=== PATIENT | female | born 1980 | race African-American/Black ===

== ENCOUNTER 2022-11-21 21:26 | Emergency (ER) | payer SELFPAY ==
[~2022-11-21] VITALS: Ht 157.5 cm; Wt 57.5 kg
[2022-11-21 21:31] VITALS: BP 138/89
[2022-11-21 21:49] LABS: BILIRUBIN,URINE NEGATIVE (NEGATIVE); COLOR,URINE YELLOW; GLUCOSE, URINE (UA) NEGATIVE (NEGATIVE); KETONES,URINE NEGATIVE (NEGATIVE); LEUKOCYTE ESTERASE ,URINE NEGATIVE (NEGATIVE); NITRITE,URINE NEGATIVE (NEGATIVE); PROTEIN,URINE NEGATIVE (NEGATIVE)
[2022-11-21 21:50] LABS: CLARITY,URINE CLOUDY; HCG,QUALITATIVE URINE NEGATIVE (NEGATIVE)
[2022-11-21 21:55] LABS: BACTERIA,URINE MODERATE /HPF; SQUAMOUS EPITHELIAL CELL,UR >50 /HPF
[2022-11-21 21:59] LABS: AMPHETAMINE SCREEN, URINE NEGATIVE (NEGATIVE); BARBITURATE SCREEN URINE NEGATIVE (NEGATIVE); BENZODIAZEPINES SCREEN URINE NEGATIVE (NEGATIVE); CANNABINOID SCREEN, URINE NEGATIVE (NEGATIVE); COCAINE SCREEN URINE NEGATIVE (NEGATIVE); METHADONE STAT NEGATIVE (NEGATIVE); OPIATE SCREEN URINE NEGATIVE (NEGATIVE); OXYCODONE STAT NEGATIVE (NEGATIVE); PROPOXYPHENE STAT NEGATIVE (NEGATIVE); TRICYCLIC ANTIDEPRESSANTS SCRE NEGATIVE (NEGATIVE)
[2022-11-21] MEDS ORDERED: KETOROLAC INJ 30 MG/ML VIAL IM ONE (22:15)
[2022-11-21] MEDS ORDERED: cefTRIAXone 250 MG VIAL IV/IM IM ONE (23:00)
[2022-11-21] MEDS ORDERED: LIDOCAINE 1% INJ 20 ML VIAL INJ ONE (23:00)
[2022-11-21] MEDS ORDERED: AZITHROMYCIN 250 MG TABLET PO ONE (23:00)
--- NOTE | 2022-11-21 23:02 | ED GU-Female ---
General Chief Complaint: - Reproductive Stated Complaint: NAUSEA|BACK PAIN| IRREGULAR ODOR Nursing Triage Note: Patient c/o lower back pain with nausea x 2 wks. Patient denies any recent injuries or falls. Patient c/o burning with urination and vaginal discharge x 2 wks. Patient denies any vomiting or taking anything at home for her pain. Patient denies any blood in her urine or Hx. of kidney stones. 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 Shehas not taken anything for pain. Pt was sitting on the floor in pain when I first walked into the exam room. Pt also c/o vagina discharge for about 1 week, and burning during urination also around 1 week. Denies fever and chills, abdominal pain, vomiting, diarrhea, hematuria, flank pain. Allergies and Home Medications Allergies Coded Allergies: No Known Allergies (Verified Allergy, Unknown, 11/21/22) Patient Home Medication List Home Medication List Reviewed: Yes Doxycycline Hyclate (Doxycycline Hyclate) 100 Mg Tablet., 100 MG PO BID Prescribed by: SHARMAINE METZGER MD on 11/21/22 [id number] Review of Systems Review of Systems Constitutional: no symptoms reported EENTM: no symptoms reported Respiratory: no symptoms reported Cardiovascular: no symptoms reported Gastrointestinal: no symptoms reported Genitourinary: burning, discharge Musculoskeletal: back pain Skin: no symptoms reported Psychiatric/Neurological: No Symptoms Reported Endocrine: No Symptoms Reported Past [id number] Hx Patient Social History Tobacco Use?: Yes Tobacco type used: Cigarettes Smoking Status: Current Everyday Smoker Use of E-Cig and/or Vaping dev: No Substance use?: No Alcohol Use?: No Immunizations Up To Date Influenza Vaccine Up-to-Date: No; Not Current Past Medical History Surgery/Hospitalization HX: Westby's disease Last Menstrual Period: Nov 07, 2022 Physical Exam Vital Signs Vital Signs - First Documented 11/21/22 21:31 Temp 37.1 Pulse 80 Resp 16 B/P (MAP) 138/89 (105) O2 Delivery Room Air Capillary Refill : Height, Weight, BMI Height: '" Weight: lbs. oz. kg; 23.00 BMI Method: General Appearance: WD/WN, no apparent distress HEENT: normal ENT inspection Neck: full range of motion Cardiovascular: regular rate, rhythm Respiratory: lungs clear Gastrointestinal: normal bowel sounds, non tender, soft Pelvic: normal external exam, no cerv. 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) Skin: normal color Progress/Results/Core Measures Suspected Sepsis SIRS Temperature: Pulse: 80 Respiratory Rate: 16 Blood Pressure 138 /89 Mean: 105 Results/Orders Lab Results Laboratory Tests Test 11/21/22 21:37 11/21/22 22:53 Range/Units Urine Color YELLOW Urine Clarity CLOUDY Urine pH 8.0 5-9 Urine Specific [place] 1.020 1.016-1.022 Urine Protein NEGATIVE NEGATIVE Urine Glucose (UA) NEGATIVE NEGATIVE Urine Ketones NEGATIVE NEGATIVE Urine Nitrite NEGATIVE NEGATIVE Urine Bilirubin NEGATIVE NEGATIVE Urine Urobilinogen 0.2 < = 1.0 MG/DL Urine Leukocyte Esterase NEGATIVE NEGATIVE Urine RBC (Auto) NEGATIVE NEGATIVE Urine RBC 5-10 H /HPF Urine WBC 2-5 /HPF Urine Squamous Epithelial Cells >50 H /HPF Urine Crystals NONE /LPF Urine Bacteria MODERATE H /HPF Urine Casts NONE /LPF Urine Mucus NEGATIVE /LPF Urine Culture Indicated NO Urine Test NEGATIVE NEGATIVE Urine Opiates Screen NEGATIVE NEGATIVE Urine Oxycodone Screen NEGATIVE NEGATIVE Urine Methadone Screen NEGATIVE NEGATIVE Urine Propoxyphene Screen NEGATIVE NEGATIVE Urine Barbiturates Screen NEGATIVE NEGATIVE Ur Tricyclic Antidepressants Screen NEGATIVE NEGATIVE Urine Phencyclidine Screen NEGATIVE NEGATIVE Urine Amphetamines Screen NEGATIVE NEGATIVE Urine Methamphetamines Screen NEGATIVE NEGATIVE Urine Benzodiazepines Screen NEGATIVE NEGATIVE Urine Cocaine Screen NEGATIVE NEGATIVE Urine Cannabinoids Screen NEGATIVE NEGATIVE Micro Results Microbiology 11/21/22 Genital Culture, Resulted Pending 11/21/22 RONA Preparation, Resulted Pending 11/21/22 Wet Prep - Final, Resulted My Orders Orders - SHARMAINE METGZER MD Drug Screen Stat (Urine) (11/21/22 21:37) Hcg,Qualitative Urine (11/21/22 21:37) Ua Culture If Indicated (11/21/22 21:37) Ketorolac Injection (Ketorolac Injection (11/21/22 22:15) Neisseria Gonorrhea Swab (11/21/22 22:07) Chlamydia Trachomatis Swab (11/21/22 22:07) Wet Prep (11/21/22 22:09) Genital Culture (11/21/22 22:09) Rona Prep (11/21/22 22:09) Hcg,Qualitative Urine (11/21/22 22:10) Ceftriaxone Iv/Im (Ceftriaxone Iv/Im) (11/21/22 23:00) Lidocaine 1% Inj 20 Ml (Xylocaine 1% Inj (11/21/22 23:00) Azithromycin Tablet (Azithromycin Tabl (11/21/22 23:00) Doxycycline Hyclate Tablet (Doxycycline (11/21/22 22:53) Medications Given in ED Current Medications Medications Dose Ordered Sig/Jelly Route Start Time Stop Time Status Last Admin Dose Admin Azithromycin 1,000 mg ONCE ONCE PO 11/21/22 23:00 11/21/22 23:01 DC 11/21/22 23:02 1,000 MG Ceftriaxone Sodium 250 mg ONCE ONCE IM 11/21/22 23:00 11/21/22 23:01 DC 11/21/22 23:02 250 MG Ketorolac Tromethamine 30 mg ONCE ONCE IM 11/21/22 22:15 11/21/22 22:16 DC 11/21/22 22:13 30 MG Lidocaine HCl 0.9 ml ONCE ONCE INJ 11/21/22 23:00 11/21/22 23:01 DC 11/21/22 23:03 0.9 ML Vital Signs/I&O 11/21/22 21:31 Temp 37.1 Pulse 80 Resp 16 B/P (MAP) 138/89 (105) O2 Delivery Room Air Capillary Refill : Blood Pressure Mean: 105 Progress Note : Progress Note 1. VAGINAL DISCHARGE: - Pt was treated empirically for GC & Chlamydia since lab results will not come back for a couple of days ( Azithro 1gm and Ceftriaxone 250mg im in ER) - Prescription for Doxy 100mg bid for 7 days : empiric treatment for Chlamydia - Advised to abstain from sex for 7 days and advised pt's partner to get testing and treatment - Wet prep and Trichomonas swabs, RONA also sent - If labs come back positive for something else, will need to follow up with PCP to get new prescription. - Follow up with PCP within 7 days 2. LUMBAR PARASPINAL MUSCLE SPASM/LUMBAR STRAIN: - Toradol im STAT. Pt's back pain resolved with this - Heat application advised - UA is positive for some RBC, no infection - UDS is negative Departure Impression Primary Impression: Vaginal discharge Additional Impressions: Screen for STD (sexually transmitted disease) Lumbar paraspinal muscle spasm Strain of lumbar paraspinal muscle Qualified Codes: S39.012A - Strain of muscle, fascia and tendon of lower back, initial encounter Disposition: HOME, SELF-CARE Condition: Stable Departure-Patient Inst. Patient Instructions: Muscle Spasm ED, Using Heat for Pain, Screening for sexually transmitted infections, Vaginal discharge, Low Back Pain ED, Exercise Band Exercises for the Back and Hips Add. Discharge Instructions: - Pt was treated empirically for GC & Chlamydia since lab results will not come back for a couple of days ( Azithro 1gm and Ceftriaxone 250mg im in ER) - Prescription for Doxy 100mg bid for 7 days : empiric treatment for Chlamydia - Advised to abstain from sex for 7 days and advised pt's partner to get testing and treatment - Wet prep and Trichomonas swabs, RONA also sent - If labs come back positive for something else, will need to follow up with PCP to get new prescription. - Follow up with PCP within 7 days - For back pain: ibuprofen 600mg every 4 hours as needed/ heat application/ and gentle stretching All discharge instructions reviewed with patient and/or family. Voiced understanding. Scripts Doxycycline Hyclate (Doxycycline Hyclate) 100 Mg Tablet. 100 MG PO BID for 7 Days, #14 TAB Prov: SHARMAINE METZGER MD 11/21/22 SHARMAINE METZGER MD Nov 21, 2022 23:02
[2022-11-21] MEDS ORDERED: DOXY-227 PO (23:05)
== END 2022-11-21 23:25 | disposition home or self-care (01) ==
LOC: ER FS 21:29
DX: S39.012A Strain of muscle, fascia and tendon of lower back, initial encounter (principal); N89.8 Other specified noninflammatory disorders of vagina; Z11.3 Encounter for screening for infections with a predominantly sexual mode of transmission; Z28.310 Unvaccinated for COVID-19; X50.0XXA Overexertion from strenuous movement or load, initial encounter; Y92.009 Unspecified place in unspecified non-institutional (private) residence as the place of occurrence of the external cause
CPT/HCPCS: 36415; 80306; 81000; 84703; 87070; 87077; 87205; 87210; 87220; 87491; 87591; 99284